=== PATIENT | male | born 1995 | race Caucasian/White ===

== ENCOUNTER 2018-07-28 08:08 | Day surgery (SDC) | payer MEDICARE ==
[~2018-07-28] VITALS: Ht 152.4 cm; Wt 56.0 kg
[~2018-07-28 08:08] MED LIST: ASCO10004 PO; LEVO50TA5 PO; MULT-658 PO; RANI-276 PO
[2018-07-28] MEDS ORDERED: LACTATED RINGERS 1,000 ML IV SCH (08:59)
[2018-07-28 09:00] VITALS: BP 126/86
[2018-07-28] MEDS ORDERED: LIDOCAINE-MPF 1%, 2ML INFIL ONE (09:00)
[2018-07-28] MEDS ORDERED: PROPOFOL 10 MG/ML, 20ML ONE (10:13)
[2018-07-28] MEDS ORDERED: OXYcodone 5 MG/5 ML ORAL.SOL UDC PO PRN (10:30)
[2018-07-28] MEDS ORDERED: FENTANYL PF 100 MCG/2ML IV PRN (10:30)
[2018-07-28] MEDS ORDERED: ONDANSETRON 2MG/ML, 2ML IV PRN (10:30)
[2018-07-28] MEDS ORDERED: ACETAMINOPHEN 325 MG TABLET PO PRN (10:30)
[2018-07-28] MEDS ORDERED: MIDAZOLAM 1 MG/ML, 2ML IV PRN (10:30)
== END 2018-07-28 12:20 | disposition home or self-care (01) ==
LOC: OUT 08:08
PROVIDERS: ATTEND Internal Medicine Geriatric Medicine
DX: R19.4 Change in bowel habit (principal); R63.4 Abnormal weight loss; Z88.0 Allergy status to penicillin
CPT/HCPCS: 43259; J2704; J7120

== ENCOUNTER 2021-04-10 21:51 | Emergency (ER) | payer MEDICAID, MEDICARE ==
[~2021-04-10] VITALS: Ht 152.4 cm; Wt 58.5 kg
[~2021-04-10 21:51] MED LIST changes: +ASCO100018 PO; -ASCO10004 PO; -RANI-276 PO; +RANI-460 PO
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
[2021-04-10 22:12] VITALS: BP 121/77
--- NOTE | 2021-04-10 22:20 | NUR ---
PT A/OX3, ALL NEEDS IN REACH, CALL LIGHT IN REACH, NAD AT THIS TIME, PT DENYING SI/SH AT THIS TIME WELL, SITTER IN ROOM WITH PT
[2021-04-10 23:33] LABS: BASOPHILS % (AUTO) 1 % (0-1); EOSINOPHILS % (AUTO) 1 % (1-7); LYMPHOCYTES % (AUTO) 18 % (22-44); MEAN CORPUSCULAR HEMOGLOBIN 34.2 pg (27.5-34.5); MEAN CORPUSCULAR HGB CONC 34.5 g/dL (33.2-36.2); MEAN PLATELET VOLUME 7.6 fL (7.4-10.4); MONOCYTES % (AUTO) 11 % (2-9); NEUTROPHILS % (AUTO) 69 % (42-75); PLATELET COUNT 266 x10^3/uL (130-400); RED BLOOD COUNT 4.27 x10^6/uL (4.38-5.82); RED CELL DISTRIBUTION WIDTH 14.2 % (9.4-14.8)
[2021-04-10 23:42] LABS: ALANINE AMINOTRANSFERASE 31 U/L (12-78); ANION GAP 3 mmol/L (5-15); CALCIUM 8.5 mg/dL (8.5-10.1); CHLORIDE 107 mmol/L (98-107)
[2021-04-10 23:49] LABS: ALKALINE PHOSPHATASE 87 U/L (45-117); BILIRUBIN,TOTAL 0.3 mg/dL (0.2-1.0); CREATININE 0.97 mg/dL (0.7-1.3); TOTAL PROTEIN 7.1 g/dL (6.4-8.2)
[2021-04-10 23:57] LABS: SALICYLATE LEVEL < 1.7 mg/dL (2.8-20.0)
--- NOTE | 2021-04-11 00:02 | NUR ---
PT ASLEEP IN BED, SITTER IN LINE OF SIGHT, NAD AT THIS TIME, VSS
--- NOTE | 2021-04-11 00:30 | NUR ---
report from teresa rn, pt care transferred at this time. pt nad, resting on gurney, appears to be in good spirits, bed in lowest, rails engaged, sitter in line of sight and chatting with pt. pt appears to be in good spirits at this time. jennifer.
--- NOTE | 2021-04-11 02:30 | NUR ---
pt nad, even and unlabored respirations noted, resting on gurney, sitter in line of sight, room secured, wctm.
[2021-04-11 03:58] LABS: AMPHETAMINE SCREEN, URINE Negative (Negative); BARBITURATE SCREEN, URINE Negative (Negative); BENZODIAZEPINE SCREEN, URINE Negative (Negative); CANNABINOID SCREEN, URINE Negative (Negative); COCAINE SCREEN, URINE Negative (Negative); METHADONE SCREEN, URINE Negative (Negative); OPIATE SCREEN, URINE Negative (Negative)
--- NOTE | 2021-04-11 04:30 | NUR ---
rn spoke with telepsych provider who discussed that the patient should stay and consult with social work in the am due to the inability to contact parents and some variant in stories received, pt al, resting on murtaza goff in line of sight, room secured, appears to be in good spirits laughing at tv and with jennifer hauser.
--- NOTE | 2021-04-11 05:35 | NUR ---
rn called to request hospital bed, breakfast tray ordered. pt nad, resting on gurney, bed in lowest, rails engaged, room secured, sitter in line of sight, jennifer.
--- NOTE | 2021-04-11 06:57 | NUR ---
RN SPOKE WITH DIONNE, PT MOTHER, WHO STATED PT HAS BEEN SEEING A NEW PSYCHOLOGIST AND HAS BEEN "SPEAKING WEIRD" LATELY. ACCORDING TO MOTHER PT HAS AN APPOINTMENT THIS AM FOR THIS. PT NAD, NO CHANGES IN CONDITION, REPORT TO GREG OROZCO, PT CARE TRANSFERRED AT THIS TIME.
--- NOTE | 2021-04-11 06:58 | NUR ---
RECEIVED REPORT FROM BENJAMIN OROZCO. PT CALMLY SLEEPING ON GURNEY, NAD WITH EQUAL CHEST RISE/FALL, NO NEEDS AT THIS TIME, PT REMAINS IN SAFE ENVIRONMENT, SITTER IN VIEW.
--- NOTE | 2021-04-11 07:40 | NUR ---
PT MOM ARRIVED AT BS; RN & DR BLUM HAD EXTENSIVE DISCUSSION RE: POC FOR PT. MOM STATES PT LIVES ON HIS OWN & HAS A JOB. PT HAS FAMILY SUPPORT & AIDES THAT CHECK IN ON HIM SEVERAL TIMES THROUGHOUT THE WEEK AND FEELS COMFORTABLE TAKING PT HOME THIS AM TO FOLLOW-UP WITH PSYCHOLOGIST AT 0900 TODAY. PT MOM STATES HE WILL STAY WITH FAMILY FOR THE NEXT FEW DAYS TO ENSURE PT SAFETY & WELL-BEING- PT AGREEABLE TO THIS POC.
--- NOTE | 2021-04-11 08:03 | NUR ---
Patient & mom given discharge instructions and they have confirmed that they understand the instructions. Patient ambulatory with steady gait. NAD, all questions answered appropriately, denies additional needs at this time. All personal belongings returned to pt from locker- nothing left in room after discharge.
== END 2021-04-11 08:15 | disposition home or self-care (01) ==
LOC: ED 21:56
DX: F41.9 Anxiety disorder, unspecified (principal)
CPT/HCPCS: 36415; 80053; 80299; 80307; 80320; 80329; 85025; 99283; G0480

== ENCOUNTER 2021-05-23 23:11 | Emergency (ER) | payer MEDICARE, MEDICAID ==
[~2021-05-23] VITALS: Ht 152.4 cm; Wt 160.0 kg
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
[2021-05-24] MEDS ORDERED: LORazepam 0.5MG TABLET PO ONE
--- NOTE | 2021-05-24 00:40 | NUR ---
called pt's mother (kimberly) no answer, unable to leave message because voicemail is full. [phone]
--- NOTE | 2021-05-24 01:05 | NUR ---
THIS RN ATTEMPTED TO CALL PTS MOTHER, THERE WAS NO ANSWER AND THE ANSWERING MACHINE WAS NOT SETUP
--- NOTE | 2021-05-24 01:19 | NUR ---
PT ASLEEP IN BED, ALL NEEDS IN REACH, CALL LIGHT IN REACH, NAD AT THIS TIME
[2021-05-24] MEDS ORDERED: LORazepam 0.5MG TABLET ONE (01:24)
--- NOTE | 2021-05-24 04:17 | NUR ---
PT ASLEEP IN BED, ALL NEEDS IN REACH, CALL LIGHT IN REACH, NAD AT THIS TIME
--- NOTE | 2021-05-24 04:47 | NUR ---
THIS RN ATTEMPTED TO CALL PTS PARENTS TO COME PICK HIM UP AND THERE WAS NO ANSWER AND THE ANSWERING MACHINE IS FULL SO THIS RN WAS NOT ABLE TO LEAVE A MESSAGE
--- NOTE | 2021-05-24 05:11 | NUR ---
PT ASLEEP IN BED, ALL NEEDS IN REACH, CALL LIGHT IN REACH, NAD AT THIS TIME
--- NOTE | 2021-05-24 05:11 | NUR ---
Patito langston in [facility] - 05/24/21 at 0511 by ANGELA The cabinet door for Emergency Room 18 is falling off (1 broken hinge)
--- NOTE | 2021-05-24 07:45 | NUR ---
PT'S MOM CONTACTED AND SHE WILL BE COMING TO PICK HIM UP THIS AM.
[2021-05-24 07:48] VITALS: BP 105/62
--- NOTE | 2021-05-24 08:25 | NUR ---
MOM BEDSIDE WITH PATIENT TO TAKE PT HOME. PT AN MOM HAD NO FURTHER QUESTIONS. PT AMBULATED WITH MOM TO DC AREA, STEADY GAIT.
== END 2021-05-24 08:27 | disposition home or self-care (01) ==
LOC: ED 23:48
DX: F41.1 Generalized anxiety disorder (principal); Q90.9 Down syndrome, unspecified; R41.82 Altered mental status, unspecified
CPT/HCPCS: 70450; 99284